=== PATIENT | female | born 1985 | race African-American/Black ===

== ENCOUNTER 2020-05-18 20:59 | Emergency (ER) | payer MEDICAID ==
[~2020-05-18] VITALS: Ht 157.5 cm; Wt 86.4 kg
[2020-05-18 21:11] VITALS: BP 114/82
[2020-05-18] MEDS ORDERED: DULO30CA96 PO (21:19)
[2020-05-18] MEDS ORDERED: OXCA300T57 PO (21:19)
[2020-05-18 22:56] LABS: BASOPHILS % (AUTO) 0.5 % (0.0-2.0); EOSINOPHILS % (AUTO) 1.1 % (1.0-6.0); HEMATOCRIT 36.6 % (36-46); HEMOGLOBIN 11.6 g/dL (12.0-16.0); LYMPHOCYTES # (AUTO) 1.8 K/uL (1.0-4.8); LYMPHOCYTES % (AUTO) 23.6 % (22.0-44.0); MEAN CORPUSCULAR HEMOGLOBIN 26.1 pg (26.0-34.0); MEAN CORPUSCULAR HGB CONC 31.6 G/dL (31.0-37.0); MEAN CORPUSCULAR VOLUME 82 fL (80-100); MONOCYTES # (AUTO) 0.6 K/uL (0.1-1.0); MONOCYTES % (AUTO) 7.3 % (2.0-9.0); NEUTROPHILS # (AUTO) 5.3 K/uL (1.8-7.7); NEUTROPHILS % (AUTO) 67.5 % (40.0-70.0); PLATELET COUNT (AUTO) 176 K/uL (150-450); RED BLOOD CELL COUNT(AUTO) 4.44 MIL/uL (4.00-5.20); RED CELL DISTRIBUTION WIDTH 20.6 % (11.5-14.5)
[2020-05-18 23:08] LABS: ANION GAP 7 mmol/L (8-16); CALCIUM, TOTAL 9.3 mg/dL (8.8-10.5); CARBON DIOXIDE 30 mmol/L (22-29); CHLORIDE 103 mmol/L (98-107); CREATININE 0.69 mg/dL (0.60-1.30); GLOMERULAR FILTR. RATE CALC > 60 mL/min (>60); GLUCOSE,RANDOM 107 mg/dL (70-110); POTASSIUM 3.3 mmol/L (3.5-5.1); SODIUM SERUM 140 mmol/L (136-145); UREA NITROGEN, BLOOD 7 mg/dL (7-18)
[2020-05-18 23:19] LABS: ALANINE AMINOTRANSFERASE 20 U/L (12-78); ALBUMIN 3.2 g/dL (3.4-5.0); ALKALINE PHOSPHATASE 112 U/L (46-116); ASPARTATE AMINOTRANSFERASE 23 U/L (15-37); BILIRUBIN,TOTAL 0.4 mg/dL (0.1-1.0); HCG,QUANTITATIVE 1 mIU/mL (0-6); LIPASE 54 U/L (73-393); TOTAL PROTEIN, SERUM 7.7 g/dL (6.4-8.2)
== END 2020-05-19 01:04 | disposition left against medical advice (07) ==
LOC: EMS 20:59
DX: R10.9 Unspecified abdominal pain (principal); R11.2 Nausea with vomiting, unspecified; Z53.21 Procedure and treatment not carried out due to patient leaving prior to being seen by health care provider

== ENCOUNTER 2020-08-29 00:28 | Inpatient (IN) | payer MEDICAID, OTHER ==
[~2020-08-29] VITALS: Ht 157.5 cm; Wt 87.6 kg
[~2020-08-29 00:28] MED LIST: DULO30CA96 PO; OXCA300T57 PO
[2020-08-29] MEDS ORDERED: SODIUM CHLORIDE 0.9% 1,000 ML IV ONE (01:15)
[2020-08-29] MEDS ORDERED: LORazepam 2 MG/ML VIAL IVP ONE (01:15)
[2020-08-29] MEDS ORDERED: ONDANSETRON HCL 4 MG/2 ML VIAL IVP ONE (01:15)
[2020-08-29 02:25] LABS: BASOPHILS % (AUTO) 2.8 % (0.0-2.0); EOSINOPHILS % (AUTO) 0.8 % (1.0-6.0); HEMATOCRIT 39.4 % (36-46); HEMOGLOBIN 13.2 g/dL (12.0-16.0); LYMPHOCYTES # (AUTO) 1.7 K/uL (1.0-4.8); LYMPHOCYTES % (AUTO) 22.5 % (22.0-44.0); MEAN CORPUSCULAR HEMOGLOBIN 26.1 pg (26.0-34.0); MEAN CORPUSCULAR HGB CONC 33.5 G/dL (31.0-37.0); MEAN CORPUSCULAR VOLUME 78 fL (80-100); MONOCYTES # (AUTO) 0.3 K/uL (0.1-1.0); MONOCYTES % (AUTO) 4.6 % (2.0-9.0); NEUTROPHILS # (AUTO) 5.1 K/uL (1.8-7.7); NEUTROPHILS % (AUTO) 69.3 % (40.0-70.0); PLATELET COUNT (AUTO) 181 K/uL (150-450); RED BLOOD CELL COUNT(AUTO) 5.06 MIL/uL (4.00-5.20); RED CELL DISTRIBUTION WIDTH 15.6 % (11.5-14.5)
[2020-08-29 02:27] LABS: COVID AG,FIA SOURCE NASOPHARYNGEAL
[2020-08-29 02:37] LABS: ANION GAP 10 mmol/L (8-16); CALCIUM, TOTAL 9.5 mg/dL (8.8-10.5); CARBON DIOXIDE 29 mmol/L (22-29); CHLORIDE 102 mmol/L (98-107); CREATININE 0.66 mg/dL (0.60-1.30); GLOMERULAR FILTR. RATE CALC > 60 mL/min (>60); GLUCOSE,RANDOM 100 mg/dL (70-110); POTASSIUM 4.3 mmol/L (3.5-5.1); SODIUM SERUM 141 mmol/L (136-145); UREA NITROGEN, BLOOD 10 mg/dL (7-18)
[2020-08-29 02:43] LABS: ALANINE AMINOTRANSFERASE 21 U/L (12-78); ALBUMIN 3.5 g/dL (3.4-5.0); ALKALINE PHOSPHATASE 124 U/L (46-116); ASPARTATE AMINOTRANSFERASE 23 U/L (15-37); BILIRUBIN,TOTAL 0.4 mg/dL (0.1-1.0); TOTAL PROTEIN, SERUM 8.3 g/dL (6.4-8.2)
[2020-08-29] MEDS ORDERED: ONDANSETRON HCL 4 MG/2 ML VIAL IVP PRN (05:45)
[2020-08-29] MEDS ORDERED: LORazepam 2 MG TABLET PO PRN (05:45)
[2020-08-29 06:15] VITALS: BP 143/91
[2020-08-29] MEDS ORDERED: 1: MAGNESIUM SULFATE 2 GM, MVI, ADULT NO.1 WITH VIT K 10 ML, THIAMINE 100 MG, FOLIC ACID IV SCH ×5 (06:30)
[2020-08-29 08:31] VITALS: BP 121/71
[2020-08-29] MEDS: HEPARIN SODIUM,PORCINE 5,000 UNITS/ML VIAL SQ SCH ×2 (08:36→16:59)
[2020-08-29] MEDS ORDERED: LORazepam 2 MG/ML VIAL IVP PRN (11:45)
[2020-08-29 12:00] VITALS: BP 127/82
[2020-08-29] MEDS: ChlordiazePOXIDE HCL 25 MG CAPSULE PO SCH ×2 (12:33→18:39)
[2020-08-29] MEDS ORDERED: INFLUENZA VIRUS VACCINE QVS 2020-21 (6MO+)/PF 60 MCG/0.5 ML SYRINGE IM ONE (18:30)
[2020-08-29 20:15] VITALS: BP 120/68
[2020-08-29] MEDS: ACETAMINOPHEN 325 MG TABLET PO PRN (21:09)
[2020-08-30 00:10] VITALS: BP 139/79
[2020-08-30 00:15] VITALS: BP 139/79
[2020-08-30] MEDS: HEPARIN SODIUM,PORCINE 5,000 UNITS/ML VIAL SQ SCH ×3 (00:18→17:21)
[2020-08-30] MEDS: ChlordiazePOXIDE HCL 25 MG CAPSULE PO SCH ×4 (00:18→17:21)
[2020-08-30] MEDS: ACETAMINOPHEN 325 MG TABLET PO PRN (03:27)
[2020-08-30 04:30] VITALS: BP 139/72
[2020-08-30] MEDS ORDERED: LORazepam 2 MG TABLET PO PRN (07:00)
[2020-08-30 07:16] LABS: BASOPHILS % (AUTO) 0.7 % (0.0-2.0); EOSINOPHILS % (AUTO) 0.6 % (1.0-6.0); HEMOGLOBIN 11.8 g/dL (12.0-16.0); LYMPHOCYTES # (AUTO) 2.2 K/uL (1.0-4.8); LYMPHOCYTES % (AUTO) 34.2 % (22.0-44.0); MEAN CORPUSCULAR HEMOGLOBIN 26.2 pg (26.0-34.0); MEAN CORPUSCULAR HGB CONC 31.8 G/dL (31.0-37.0); MEAN CORPUSCULAR VOLUME 82 fL (80-100); MONOCYTES # (AUTO) 0.4 K/uL (0.1-1.0); MONOCYTES % (AUTO) 5.7 % (2.0-9.0); NEUTROPHILS # (AUTO) 3.8 K/uL (1.8-7.7); NEUTROPHILS % (AUTO) 58.8 % (40.0-70.0); PLATELET COUNT (AUTO) 182 K/uL (150-450); RED CELL DISTRIBUTION WIDTH 15.6 % (11.5-14.5)
[2020-08-30 07:23] LABS: ANION GAP 12 mmol/L (8-16); CALCIUM, TOTAL 8.8 mg/dL (8.8-10.5); CARBON DIOXIDE 25 mmol/L (22-29); CHLORIDE 104 mmol/L (98-107); CREATININE 0.55 mg/dL (0.60-1.30); GLOMERULAR FILTR. RATE CALC > 60 mL/min (>60); GLUCOSE,RANDOM 97 mg/dL (70-110); POTASSIUM 3.3 mmol/L (3.5-5.1); SODIUM SERUM 141 mmol/L (136-145); UREA NITROGEN, BLOOD 10 mg/dL (7-18)
[2020-08-30 08:01] VITALS: BP 142/68
[2020-08-30] MEDS: MULTIVITAMINS, THERAPEUTIC TABLET PO SCH (08:40)
[2020-08-30] MEDS: FOLIC ACID 1 MG TABLET PO SCH (08:40)
[2020-08-30] MEDS: LORazepam 2 MG TABLET PO SCH ×2 (08:41→13:32)
[2020-08-30] MEDS: THIAMINE 100 MG TABLET PO SCH (08:41)
[2020-08-30] MEDS ORDERED: POTASSIUM CHLORIDE 20 MEQ ER TABLET PO ONE (18:15)
[2020-08-30 20:22] VITALS: BP 128/75
[2020-08-31 00:06] VITALS: BP 126/77
[2020-08-31] MEDS: HEPARIN SODIUM,PORCINE 5,000 UNITS/ML VIAL SQ SCH ×4 (00:36→23:03)
[2020-08-31] MEDS: ChlordiazePOXIDE HCL 25 MG CAPSULE PO SCH ×4 (00:36→23:03)
[2020-08-31 04:55] VITALS: BP 138/86
[2020-08-31 06:53] LABS: ANION GAP 9 mmol/L (8-16); CALCIUM, TOTAL 8.8 mg/dL (8.8-10.5); CARBON DIOXIDE 27 mmol/L (22-29); CHLORIDE 104 mmol/L (98-107); CREATININE 0.62 mg/dL (0.60-1.30); GLOMERULAR FILTR. RATE CALC > 60 mL/min (>60); GLUCOSE,RANDOM 100 mg/dL (70-110); POTASSIUM 3.5 mmol/L (3.5-5.1); SODIUM SERUM 140 mmol/L (136-145); UREA NITROGEN, BLOOD 9 mg/dL (7-18)
[2020-08-31 08:03] VITALS: BP 131/85
[2020-08-31] MEDS: FOLIC ACID 1 MG TABLET PO SCH (09:50)
[2020-08-31] MEDS: MULTIVITAMINS, THERAPEUTIC TABLET PO SCH (09:50)
[2020-08-31] MEDS: THIAMINE 100 MG TABLET PO SCH (09:50)
[2020-08-31 19:46] VITALS: BP 132/82
[2020-09-01 05:22] VITALS: BP 144/87
[2020-09-01] MEDS ORDERED: LORazepam 1 MG TABLET PO PRN (07:00)
[2020-09-01 07:55] VITALS: BP 130/79
[2020-09-01] MEDS ORDERED: LORazepam 1 MG TABLET PO SCH (09:00)
[2020-09-01] MEDS: HEPARIN SODIUM,PORCINE 5,000 UNITS/ML VIAL SQ SCH ×2 (09:27→16:00)
[2020-09-01] MEDS: FOLIC ACID 1 MG TABLET PO SCH (09:28)
[2020-09-01] MEDS: THIAMINE 100 MG TABLET PO SCH (09:28)
[2020-09-01] MEDS: MULTIVITAMINS, THERAPEUTIC TABLET PO SCH (09:28)
[2020-09-01] MEDS: ChlordiazePOXIDE HCL 25 MG CAPSULE PO SCH (12:04)
[2020-09-01] MEDS ORDERED: DENTURE ADHESIVE 68 GM CREAM DT PRN (15:45)
[2020-09-02] MEDS ORDERED: LORazepam 1 MG TABLET PO PRN (07:00)
[2020-09-02] MEDS ORDERED: ChlordiazePOXIDE HCL 25 MG CAPSULE PO ONE (15:30)
== END 2020-09-01 18:52 | DRG 897 ==
LOC: EMS 00:32 → 6S 04:00
PROVIDERS: ADMIT Internal Medicine; ATTEND Internal Medicine
DX: F10.139 Alcohol abuse with withdrawal, unspecified (principal); F19.10 Other psychoactive substance abuse, uncomplicated; Z20.822 Contact with and (suspected) exposure to COVID-19; B19.20 Unspecified viral hepatitis C without hepatic coma; F43.10 Post-traumatic stress disorder, unspecified; F17.210 Nicotine dependence, cigarettes, uncomplicated; Y90.0 Blood alcohol level of less than 20 mg/100 ml; F15.10 Other stimulant abuse, uncomplicated; R56.9 Unspecified convulsions; F31.9 Bipolar disorder, unspecified; Z88.5 Allergy status to narcotic agent
CPT/HCPCS: 87426; 99285; G0480; J1644; J2060; J2405; J3411; J3475; J3490; J7030